=== PATIENT | female | born 1970 | race African-American/Black ===

== ENCOUNTER 2016-09-24 03:09 | Emergency (ER) | payer MEDICAID ==
[2016-09-24 03:09] VITALS: BMI 50.7
[2016-09-24] MEDS ORDERED: Pharmacy Review for Metformin - IV Contrast Given SCH (04:00)
--- NOTE | 2016-09-24 04:04 | EDPRACDOC ---
- General Information Information Source: Patient Mode Of Arrival: Car - History of Present Illness Onset: SCIENCE SPECIALIST Pain Location: Reports: Epigastric, RUQ Pain Context: Reports: Spontaneous Pain Severity: Severe Pain Quality: Reports: Sharp Pain Radiation: Reports: Shoulder (right) : No Control Method: Reports: Hysterectomy (partial) Female Abdominal History: Reports: Abdominal Surgery Modifying Factors: improves with: Nothing Oral Intake: Decreased Urinary Output: Normal <Pedrito Hall - Last Filed: 09/24/16 05:31> <Ross Guajardo - Last Filed: 09/24/16 06:19> <Lilliam Rawls - Last Filed: 09/24/16 08:45> - General Information Stated Complaint: RIB PAIN, CHEST PRESSURE Time Seen by Provider: 09/24/16 03:24 Home Medications: Home Medications NPH, Human Insulin Isophane [Novolin N] 10 units SQ AC 08/06/14 Aspirin (Enteric Coated) [Halfprin] 81 mg PO DAILY 11/21/14 Furosemide [Lasix] 160 mg PO DAILY 11/21/14 Losartan Potassium [Cozaar] 100 mg PO DAILY 11/21/14 MetFORMIN (Immediate Release) [GLUCOPHAGE Immed Release] 1,000 mg PO BID(FANG) Spironolactone [Aldactone] 100 mg PO DAILY 11/21/14 Amitriptyline HCl [Elavil] 25 mg PO HS 03/13/15 Omeprazole [Prilosec] 20 mg PO BID 11/13/15 Carvedilol 25 mg PO BID 08/12/16 Chlorthalidone 25 mg PO DAILY 08/12/16 CloNIDine (Antihypertensive) [Catapres-Tts] 0.3 mg TOP WEEKLY 09/24/16 Insulin Glargine [Lantus Pen] 65 units SQ HS 09/24/16 Ondansetron [Zofran Odt] 4 mg PO TID PRN #10 tab.rapdis 09/24/16 Oxycodone Immediate Release [Oxy-Ir] 5 mg PO Q6H PRN #10 tab 09/24/16 Allergies/Adverse Reactions: Allergies Allergy/AdvReac Type Severity Reaction Status Date / Time morphine Allergy Difficulty Verified 11/16/15 22:01 Breathing prednisone Allergy Hives* Verified 11/13/15 23:03 - History of Present Illness HPI: C/o intermittent RUQ pain that radiates to right shoulder, epigastric pain, nausea x 1 month, that has gotten much worse, peaking last night and waking her up. Pt also states that she has been feeling left side chest pressure since she can't take her "heart meds" due to nausea. Denies SOB, fever, change in urine. Pt has hx of cardiac stents, with stress test 06/19/15 NEG for ischemia, EF 70%. Cardiac cath 11/17/15 mild non obstructive CAD. EF 70%. Med hx = HTN, HDL, DM, bleeding ulcers, + fam hx for cardiac dz. Surgical hx= partial hysterectomy ( + both ovaries), c section. (Pedrito Hall) MD NOTE PT SEEN AND EXAMINED; CC OF RUQ PAIN. VERY TENDER TO PALPATION RUQ I READ OLD RECORDS AND NOTED PT SENT FOR CATH LAST SPRING. RESULTS ON CHART AND NO SIGNIFICANT LESIONS NOTED. JAMES (Ross Guajardo) ED Past Medical History - History Reviewed Yes Nurses notes reviewed and agree except as marked - Patient Medical History Neurological History: Reports: Cerebrovascular Accident (2010) Cardiac History: Reports: Hypertension, Congestive Heart Failure, Heart Attack ( 2011 [facility]), Cardiac Catheterization, Hypercholesterolemia, Syncope Respiratory History: Reports: Cough GI/ History: Reports: Gastroesophageal Reflux, Ulcer (peptic ulcer 2014; GI bleed 2014.) Musculoskeletal History: Reports: Arthritis (and fibromyalgia) Psychological History: Reports: Depression, Anxiety. Denies: Substance Use Disorder Systemic History: Reports: Anemia (Transfusion 2014 from GI bleed.), Diabetes Surgical History: Reports: Hysterectomy (partial hysterectomy 2005, ovaries remain. Had c/sections also.), Cardiac Catheterization, Tonsillectomy/ Adnoidectomy, Other ( x3) - Family Medical History Reports: Hypertension, Diabetes (mother), Stroke, Cardiac Disorders (Mother had an UT: initial UT at 32. MGM: at 32 of UT.) - Social Medical History Smoking Status: Never smoker Social History: Denies: Substance Use Disorder <Pedrito Hall - Last Filed: 09/24/16 05:31> EDM Review of Systems - Review of Systems ROS Negative Except as Marked: Yes All systems reviewed and were negative except as marked Cardiovascular: Chest Pain Gastrointestinal: Nausea, Pain, Vomiting <Pedrito Hall - Last Filed: 09/24/16 05:31> - Physical Exam Constitutional: Alert, Distress (pain) Oriented to: Time, Person, Place - HEENT Head: Normal Eye Exam: negative: Conjunctival Injection, Scleral Icterus Oropharynx: negative: Drooling TMJ: Normal Nose: No Symptoms Reported Neck: Normal - Respiratory/Cardiovascular Respiratory: Normal - CTA Cardiovascular: Normal - GI Auscultation: Normal Palpation: Normal Tenderness: Severe, RUQ Maurer's Sign: Positive - Musculoskeletal Back: Normal Extremities: Normal - Integumentary Skin: Normal - Neurologic Mood Description: Normal Thought: Coherent Perception: Normal <Pedrito Hall - Last Filed: 09/24/16 05:31> - Results 09/24/16 03:48 09/24/16 03:48 - EKG EKG #1 EKG Time: 03:48 -: Yes EKG interpreted by me Rate: bpm: 64 Rhythm: NSR ST: Normal Comparison: 08/12/16 (NSR) <Pedrito Hall - Last Filed: 09/24/16 05:31> - Re-evaluation Re-evaluation 1 Re-evaluation Time: 06:20 (STILL HURTING. I EXPLAINED PLAN AND UPCOMING GB US) - Results 09/24/16 03:48 09/24/16 03:48 <Ross Guajardo - Last Filed: 09/24/16 06:19> - Re-evaluation Re-evaluation 2 Re-evaluation Time: 08:40 (IMPROVED) - Results 09/24/16 03:48 09/24/16 03:48 - Diagnostic Imaging Abdomen Image interpreted by: Radiologist <Lilliam Rawls - Last Filed: 09/24/16 08:45> - Results WBC 10.0 xk/uL (3.8-10.8) 09/24/16 03:48 RBC 4.47 xM/uL (4.20-5.40) 09/24/16 03:48 Hgb 13.4 g/dL (12.0-16.0) 09/24/16 03:48 Hct 39.0 % (36-47) 09/24/16 03:48 MCV 87 fL (81-99) 09/24/16 03:48 MCH 29.9 pg (27-32) 09/24/16 03:48 MCHC 34.2 g/dl (33-36) 09/24/16 03:48 RDW 13.0 % (11.5-14.5) 09/24/16 03:48 Plt Count 335 xk/uL (130-400) 09/24/16 03:48 MPV 9.2 fL (7.4-10.4) 09/24/16 03:48 Neut % (Auto) 55.3 % (45-76) 09/24/16 03:48 Lymph % (Auto) 33.9 % (17-44) 09/24/16 03:48 [place] % (Auto) 8.6 % (3-10) 09/24/16 03:48 Eos % (Auto) 1.5 % (0-5) 09/24/16 03:48 Baso % (Auto) 0.7 % (0-2) 09/24/16 03:48 Absolute Neuts (auto) 5.50 xk/uL (1.7-8.2) 09/24/16 03:48 Absolute Lymphs (auto) 3.30 xk/uL (0.65-4.75) 09/24/16 03:48 PT 10.6 SEC (9.2-11.2) 09/24/16 03:48 INR 1.0 09/24/16 03:48 APTT 25.0 SEC (22-35) 09/24/16 03:48 Sodium 134 mEq/L (137-146) L 09/24/16 03:48 Potassium 3.3 mEq/L (3.5-5.1) L 09/24/16 03:48 Chloride 95 mEq/L (98-107) L 09/24/16 03:48 Carbon Dioxide 28 mMOL/L (22-33) 09/24/16 03:48 Anion Gap 14 mEq/L (8-16) 09/24/16 03:48 BUN 18 MG/DL (7-17) H 09/24/16 03:48 Creatinine 1.20 MG/DL (0.52-1.04) H 09/24/16 03:48 Estimated GFR (MDRD) 59 mL/min (>=60) L 09/24/16 03:48 Glucose 271 mg/dL (70-99) H 09/24/16 03:48 Calculated Osmolality 270 MOs/Kg (270-290) 09/24/16 03:48 Calcium 8.8 MG/DL (8.4-10.2) 09/24/16 03:48 Corrected Calcium 8.9 MG/DL (8.4-10.2) 09/24/16 03:48 Total Bilirubin 0.5 MG/DL (0.2-1.3) 09/24/16 03:48 AST 24 IU/L (14-36) 09/24/16 03:48 ALT 24 IU/L (9-52) 09/24/16 03:48 Alkaline Phosphatase 109 IU/L (38-126) 09/24/16 03:48 Troponin I 0.02 ng/mL (<.04) 09/24/16 06:59 Kup-B-Uofphidkpxf Pept 27 pg/mL (0-450) 09/24/16 03:48 Total Protein 7.0 G/DL (6.3-8.2) 09/24/16 03:48 Albumin 3.9 G/DL (3.5-5.0) 09/24/16 03:48 Lipase 87 U/L (23-300) 09/24/16 03:48 Urine Color Colorless 09/24/16 05:26 Urine Clarity Clear 09/24/16 05:26 Urine pH 6.0 (5.0-8.0) 09/24/16 05:26 Ur Specific [place] 1.005 (1.003-1.035) 09/24/16 05:26 Urine Protein Neg (NEG/TRACE) 09/24/16 05:26 Urine Glucose (UA) 1+ (NEGATIVE) H 09/24/16 05:26 Urine Ketones Neg (NEGATIVE) 09/24/16 05:26 Urine Occult Blood Neg (NEG/TRACE) 09/24/16 05:26 Urine Nitrite Neg (NEGATIVE) 09/24/16 05:26 Urine Bilirubin Neg (NEGATIVE) 09/24/16 05:26 Urine Urobilinogen <2.0 MG/DL (0-1) 09/24/16 05:26 Ur Leukocyte Esterase Neg (NEGATIVE) 09/24/16 05:26 Urine RBC 0-2 (0-5) 09/24/16 05:26 Urine WBC 0-2 (0-5) 09/24/16 05:26 Ur Epithelial Cells 1+ 09/24/16 05:26 Hyaline Casts 0-2 (0-2) 09/24/16 05:26 Lab Results 09/24/16 09/24/16 09/24/16 06:59 05:26 03:48 WBC RBC Hgb Hct MCV MCH MCHC RDW Plt Count MPV Neut % (Auto) Lymph % (Auto) [place] % (Auto) Eos % (Auto) Baso % (Auto) Absolute Neuts (auto) Absolute Lymphs (auto) PT 10.6 INR 1.0 APTT 25.0 Sodium Potassium Chloride Carbon Dioxide Anion Gap BUN Creatinine Estimated GFR (MDRD) Glucose Calculated Osmolality Calcium Corrected Calcium Total Bilirubin AST ALT Alkaline Phosphatase Troponin I 0.02 Ppb-P-Yrgupjnudgt Pept Total Protein Albumin Lipase Urine Color Colorless Urine Clarity Clear Urine pH 6.0 Ur Specific [place] 1.005 Urine Protein Neg Urine Glucose (UA) 1+ H Urine Ketones Neg Urine Occult Blood Neg Urine Nitrite Neg Urine Bilirubin Neg Urine Urobilinogen <2.0 Ur Leukocyte Esterase Neg Urine RBC 0-2 Urine WBC 0-2 Ur Epithelial Cells 1+ Hyaline Casts 0-2 09/24/16 09/24/16 03:48 03:48 WBC 10.0 RBC 4.47 Hgb 13.4 Hct 39.0 MCV 87 MCH 29.9 MCHC 34.2 RDW 13.0 Plt Count 335 MPV 9.2 Neut % (Auto) 55.3 Lymph % (Auto) 33.9 [place] % (Auto) 8.6 Eos % (Auto) 1.5 Baso % (Auto) 0.7 Absolute Neuts (auto) 5.50 Absolute Lymphs (auto) 3.30 PT INR APTT Sodium 134 L Potassium 3.3 L Chloride 95 L Carbon Dioxide 28 Anion Gap 14 BUN 18 H Creatinine 1.20 H Estimated GFR (MDRD) 59 L Glucose 271 H Calculated Osmolality 270 Calcium 8.8 Corrected Calcium 8.9 Total Bilirubin 0.5 AST 24 ALT 24 Alkaline Phosphatase 109 Troponin I < 0.01 Uld-Z-Mbpkldqexyl Pept 27 Total Protein 7.0 Albumin 3.9 Lipase 87 Urine Color Urine Clarity Urine pH Ur Specific [place] Urine Protein Urine Glucose (UA) Urine Ketones Urine Occult Blood Urine Nitrite Urine Bilirubin Urine Urobilinogen Ur Leukocyte Esterase Urine RBC Urine WBC Ur Epithelial Cells Hyaline Casts (Ross Guajardo) (Lilliam Rawls) - Diagnostic Imaging Abdomen 09/24/16 08:43 GB US: 1. No acute findings. Normal gallbladder with no bile duct dilation. 2. Hepatic steatosis. 09/24/16 08:43 CT ABD/PELVIS: 1. No acute abnormality seen within the abdomen or pelvis. 2. Large stable benign cyst again noted at the lesser sac, measuring 6.7 x 4.1 cm. 3. Tiny bilateral renal cysts again noted. (Lilliam Rawls) - Additional Information pt states that she has taken dilaudid before for pain without issue. (Pedrito Hall) - Departure Disposition: Home Education/Counseling Given To: Patient Education/Counseling Given Regarding: Diagnosis, Treatment, Prognosis, Follow Up <Pedrito Hall - Last Filed: 09/24/16 05:31> - Departure Yes I personally saw and evaluated the patient. <Ross Guajardo - Last Filed: 09/24/16 06:19> Decision Time to Discharge: 08:43 <Lilliam Rawls - Last Filed: 09/24/16 08:45> - Departure Condition: Stable Final Diagnosis: Abdominal pain Qualifiers: Abdominal location: right upper quadrant Qualified Code(s): R10.11 - Right upper quadrant pain Instructions: Abdominal Pain (ED) Referrals: None,No Provider [Primary Care Provider] - One Week Prescriptions: New Ondansetron [Zofran Odt] 4 mg PO TID PRN #10 tab.rapdis PRN Reason: Nausea/Vomiting Oxycodone Immediate Release [Oxy-Ir] 5 mg PO Q6H PRN #10 tab PRN Reason: Pain No Action NPH, Human Insulin Isophane [Novolin N] 10 units SQ AC Aspirin (Enteric Coated) [Halfprin] 81 mg PO DAILY Furosemide [Lasix] 160 mg PO DAILY MetFORMIN (Immediate Release) [GLUCOPHAGE Immed Release] 1,000 mg PO BID(FANG) Losartan Potassium [Cozaar] 100 mg PO DAILY Spironolactone [Aldactone] 100 mg PO DAILY Amitriptyline HCl [Elavil] 25 mg PO HS Omeprazole [Prilosec] 20 mg PO BID Chlorthalidone 25 mg PO DAILY Carvedilol 25 mg PO BID CloNIDine (Antihypertensive) [Catapres-Tts] 0.3 mg TOP WEEKLY Insulin Glargine [Lantus Pen] 65 units SQ HS Additional Instructions: Follow up with primary care for HIDA SCAN return to ED for any new or worsening symptoms.
[2016-09-24 04:05] LABS: BLOOD UREA NITROGEN 18 MG/DL (7-17); CALC CORRECTED 8.9 MG/DL (8.4-10.2); CALCIUM 8.8 MG/DL (8.4-10.2); CALCULATED OSMOLALITY 270 MOs/Kg (270-290); CHLORIDE 95 mEq/L (98-107); GLUCOSE 271 mg/dL (70-99); SODIUM LEVEL 134 mEq/L (137-146)
[2016-09-24 04:13] LABS: AUTOMATED BASOPHIL 0.7 % (0-2); AUTOMATED EOSINOPHIL 1.5 % (0-5); AUTOMATED LYMPH 33.9 % (17-44); AUTOMATED MONOCYTE 8.6 % (3-10); AUTOMATED NEUTROPHIL 55.3 % (45-76); MPV 9.2 fL (7.4-10.4)
--- NOTE | 2016-09-24 04:35 | DIRPT ---
CLINICAL DATA: Acute onset of right upper quadrant abdominal pain and right rib pain. Nausea. Initial encounter. EXAM: CT ABDOMEN AND PELVIS WITH CONTRAST TECHNIQUE: Multidetector CT imaging of the abdomen and pelvis was performed using the standard protocol following bolus administration of intravenous contrast. CONTRAST: 100 mL of Isovue 370 IV contrast COMPARISON: CT of the abdomen and pelvis from 06/15/2016 FINDINGS: The visualized lung bases are clear. A large cyst is again noted at the lesser sac, measuring approximately 6.7 x 4.1 cm, stable from prior studies and likely benign. Smaller cystic foci are noted more superiorly, also grossly stable. The liver and spleen are unremarkable in appearance. The gallbladder is within normal limits. The pancreas and adrenal glands are unremarkable. Tiny bilateral renal cysts are again noted. The kidneys are otherwise unremarkable. There is no evidence of hydronephrosis. No renal or ureteral stones are seen. No perinephric stranding is appreciated. No free fluid is identified. The small bowel is unremarkable in appearance. The stomach is within normal limits. No acute vascular abnormalities are seen. The appendix is normal in caliber, without evidence of appendicitis. The colon is largely decompressed and is unremarkable in appearance. The bladder is moderately distended and grossly unremarkable. The patient is status post hysterectomy. No suspicious adnexal masses are seen. The right ovary is unremarkable in appearance. No inguinal lymphadenopathy is seen. No acute osseous abnormalities are identified. IMPRESSION: 1. No acute abnormality seen within the abdomen or pelvis. 2. Large stable benign cyst again noted at the lesser sac, measuring 6.7 x 4.1 cm. 3. Tiny bilateral renal cysts again noted. Electronically Signed By: Sebastien Gonzalez M.D. On: 09/24/2016 04:32
[2016-09-24] MEDS ORDERED: ONDANSETRON HCL 4 MG/2 ML VIAL IV ONE (04:39)
[2016-09-24] MEDS ORDERED: HYDROmorphone 1 MG INJECTION IV ONE ×3 (04:39→07:58)
[2016-09-24 05:50] VITALS: TEMP 98.7
--- NOTE | 2016-09-24 06:08 | DIRPT ---
CLINICAL DATA: Acute onset of right rib pain. Nausea and upper abdominal cramping. Chest pressure. Initial encounter. EXAM: CHEST 2 VIEW COMPARISON: Chest radiograph from 08/12/2016 FINDINGS: The lungs are well-aerated and clear. There is no evidence of focal opacification, pleural effusion or pneumothorax. The heart is borderline normal in size. No acute osseous abnormalities are seen. IMPRESSION: No acute cardiopulmonary process seen. No displaced rib fractures identified. Electronically Signed By: Sebastien Gonzalez M.D. On: 09/24/2016 06:05
[2016-09-24 06:24] LABS: LEUKOCYTES/URINE NEG (NEGATIVE); NITRITE/URINE NEG (NEGATIVE); RBC/URINE 0-2 (0-5); URINE OCCULT BLOOD NEG (NEG/TRACE); WBC/URINE 0-2 (0-5)
[2016-09-24 07:55] VITALS: BP 127/81
[2016-09-24] MEDS ORDERED: PROMETHAZINE 25 MG/ML VIAL IV ONE (07:58)
--- NOTE | 2016-09-24 08:26 | DIRPT ---
CLINICAL DATA: Right upper pain for 4 days with nausea and vomiting. EXAM: US ABDOMEN LIMITED - RIGHT UPPER QUADRANT COMPARISON: None. FINDINGS: Gallbladder: No gallstones or wall thickening visualized. No sonographic Maurer sign noted by payable representative. Common bile duct: Diameter: 3.4 mm Liver: Increased parenchymal echogenicity with decreased through transmission of the sound beam limiting the liver evaluation. Allowing for this, there is no mass or focal lesion. IMPRESSION: 1. No acute findings. Normal gallbladder with no bile duct dilation. 2. Hepatic steatosis. Electronically Signed By: Pedrito Llanes M.D. On: 09/24/2016 08:24
[2016-09-24 09:02] VITALS: PULSE 84
== END 2016-09-24 09:01 | disposition home or self-care (01) ==
LOC: ED 03:09
DX: R10.11 Right upper quadrant pain (principal); I10 Essential (primary) hypertension; I50.9 Heart failure, unspecified; E78.00 Pure hypercholesterolemia, unspecified; K21.9 Gastro-esophageal reflux disease without esophagitis; E11.9 Type 2 diabetes mellitus without complications; Z79.82 Long term (current) use of aspirin; Z79.4 Long term (current) use of insulin; Z79.899 Other long term (current) drug therapy
CPT/HCPCS: 36415; 71020; 74177; 76705; 80053; 81001; 83690; 83880; 84484; 85025; 85610; 85730; 93005; 96374; 96375; 96376; 99284; A9698; J1170; J2405; J2550